=== PATIENT | female | born 1960 | race Caucasian/White ===

== ENCOUNTER 2020-04-22 12:18 | Emergency (ER) | payer OTHER, MEDICAID ==
[~2020-04-22] VITALS: Ht 172.7 cm; Wt 68.2 kg
--- NOTE | 2020-04-22 12:40 | NUR ---
Pt ambulated to x-ray without any difficulty.
[2020-04-22] MEDS ORDERED: propofol 10mg/ml 20ml vial IV PRN (13:40)
--- NOTE | 2020-04-22 14:15 | NUR ---
pt underwent moderate sedation for a reduction of her right sternal clavicular area, was given 140mg of propofol, tolerated procedure fair. is alert but still drowsy, answering all questions approperatly, will continue to monitor
[2020-04-22] MEDS ORDERED: morphine 4 MG/ML inj SYRINge IV ONE (14:45)
[2020-04-22 15:26] VITALS: BP 162/91
== END 2020-04-22 15:31 | disposition home or self-care (01) ==
LOC: ER 12:18
DX: S43.204A Unspecified dislocation of right sternoclavicular joint, initial encounter (principal); W18.39XA Other fall on same level, initial encounter; Y93.89 Activity, other specified; Y92.89 Other specified places as the place of occurrence of the external cause; Y99.8 Other external cause status
CPT/HCPCS: 23525; 71045; 73000; 94799; 96374; 99285; J2270; J2704; 23650